=== PATIENT | female | born 1965 | race African-American/Black ===

== ENCOUNTER → 2024-11-26 15:12 | Outpatient (REF) | payer BC, SELFPAY ==
[2024-11-26 16:32] LABS: Urine Albumin Negative (Neg - Trace); Urine Bilirubin Negative (Negative); Urine Character Clear (Clear); Urine Color Yellow; Urine Glucose Negative (Negative); Urine Ketone Negative (Negative); Urine Leukocyte Negative (Negative); Urine Nitrite Negative (Negative); Urine Occult Blood 2+ (Negative); Urine Urobilinogen Negative (Neg - 1+)
[2024-11-26 16:56] LABS: Urine Mucus Few
[2024-11-26 16:57] LABS: Urine Bacteria Moderate (Negative); Urine White Cell 0-2 /HPF (0-5)
== END ==
LOC: REG 15:12
PROVIDERS: ATTENDING PHYSICIAN Family Medicine
DX: R35.0 Frequency of micturition (principal)
CPT/HCPCS: 81003; 81015; 87086

== ENCOUNTER 2024-12-20 02:06 | Emergency (ER) | payer BC, SELFPAY ==
[2024-12-20 02:08] VITALS: BP 184/100
[2024-12-20 02:21] VITALS: BMI 39.1
--- NOTE | 2024-12-20 02:41 | ED.GENMED ---
History of Present Illness
<Pebbles Vega PA-C - Last Filed: 12/20/24 06:14>
General
Chief Complaint: Facial Problem
Source: patient
Exam Limitations: none
Time Seen by Provider: 12/20/24 02:15
Nursing documentation reviewed up to this point in time: agreed with
History of Present Illness
History of Present Illness:
This is a 59-year-old female with a past medical history of GERD who presents emergency department today with concerns of right facial paresthesias. Patient reports that she woke up in the middle of the night and noticed that there was some
numbness and tingling to right side of her face. She feels a from her forehead down to her chin on that side. She denies any true loss of sensation. She denies any facial pain. She denies any burning sensation. She never anything like this
before. She is concerned that she may have be having a stroke. She also notes she feels a strange sensation in her right eyelid and feels like her right eye is not closing all the way. She feels tightness in her right forehead. She feels like her
right eyelid also feels somewhat droopy. She denies any confusion, difficulty speaking, difficulty swallowing, double vision, chest pain, shortness of breath, numbness or weakness in her upper or lower extremity, difficulty ambulating. She denies
any fevers or chills. She denies any exposures to ticks. She denies any history of shingles.
Review of Systems
<Pebbles Vega PA-C - Last Filed: 12/20/24 06:14>
Review of Systems
All Other Systems: ROS reviewed and negative except as documented in HPI and ROS
Phy Exam
<Pebbles Vega PA-C - Last Filed: 12/20/24 06:14>
Physical Exam
Physical Exam:
General: Patient is well appearing and in no acute distress; non-toxic
Skin: Warm and dry, no rashes or lesions
Head: Normocephalic, atraumatic
Eyes: Sclera non-icteric. EOMs intact. No nystagmus.
Cardiac: Regular rate and rhythm, no murmur
Pulm: Normal respiratory effort, no wheezes, rales, or rhonchi
Neuro: CN II-XII intact, no obvious facial droop, with eyebrows raised there is minimal muscle lag of the right forehead minimal loss of right nasolabial fold. 5/5 strength in bilateral upper and lower extremities. Normal finger to nose, heel to
stoll testing.
Psychiatric: Appropriate mood and affect.
Scores
<Pebbles Vega PA-C - Last Filed: 12/20/24 06:14>
NIH Stroke Score
Level of Consciousness: 0 - Alert
LOC Questions: 0-Answers both correctly
LOC Commands: 0-Performs both correctly
Best Horizontal Gaze: 0-Normal
Visual [place]: 0=Normal, no visual loss
Facial Palsy: 1=Minor paralysis
Motor - Right Arm: 0=No drift 10 seconds
Motor - Left Arm: 0=No drift 10 seconds
Motor - Right Le-No drift 5 seconds
Motor - Left Le-No drift 5 seconds
Limb Ataxia: 0-Absent
Sensation: 0-Normal
Best Language: 0-No aphasia
Dysarthria: 0-Normal
Extinction and Inattention: 0-No abnormality
NIH Total Score:: 1
Course
<Pebbles Vega PA-C - Last Filed: 12/20/24 06:14>
Orders/Labs/Results
Orders:
Orders
12/20/24 03:24
Complete Blood Count/With Diff Urgent
Comprehensive Metabolic Panel Urgent
Lyme Progressive Urgent
Abnormal Lab Results
12/20/24
03:24
Hct 35.6 L %
(37.0-47.0)
RDW 15.9 H %
(11.5-14.5)
MPV 10.9 H fL
(7.4-10.4)
Absolute Monos (auto) 0.8 H 10^3/uL
(0.1-0.6)
Monocytes % 9.5 H %
(1.7-9.3)
Chloride 109 H mmol/L
(98-107)
BUN 28 H mg/dl
(7-17)
Glucose 112 H mg/dl
(70-99)
12/20/24 03:24
12/20/24 03:24
Vital Signs
Initial and Last Documented VS:
Initial Vital Signs
Pulse Resp BP Pulse Ox
78 22 184/100 97
12/20/24 02:08 12/20/24 02:08 12/20/24 02:08 12/20/24 02:08
Last Documented Vital Signs
Temp Pulse Resp BP Pulse Ox
98.1 F 74 18 133/85 100
12/20/24 02:35 12/20/24 03:57 12/20/24 03:57 12/20/24 03:57 12/20/24 03:57
Yvonnelt;Edilma Pederson, DO - Last Filed: 12/20/24 03:40>
Orders/Labs/Results
Orders:
Orders
12/20/24 03:24
Complete Blood Count/With Diff Urgent
Comprehensive Metabolic Panel Urgent
Lyme Progressive Urgent
Abnormal Lab Results
12/20/24
03:24
Hct 35.6 L %
(37.0-47.0)
RDW 15.9 H %
(11.5-14.5)
MPV 10.9 H fL
(7.4-10.4)
Absolute Monos (auto) 0.8 H 10^3/uL
(0.1-0.6)
Monocytes % 9.5 H %
(1.7-9.3)
Chloride 109 H mmol/L
(98-107)
BUN 28 H mg/dl
(7-17)
Glucose 112 H mg/dl
(70-99)
12/20/24 03:24
12/20/24 03:24
Vital Signs
Initial and Last Documented VS:
Initial Vital Signs
Pulse Resp BP Pulse Ox
78 22 184/100 97
12/20/24 02:08 12/20/24 02:08 12/20/24 02:08 12/20/24 02:08
Last Documented Vital Signs
Temp Pulse Resp BP Pulse Ox
98.1 F 74 18 133/85 100
12/20/24 02:35 12/20/24 03:57 12/20/24 03:57 12/20/24 03:57 12/20/24 03:57
<Pebbles Vega PA-C - Last Filed: 12/20/24 06:14>
MDM/Problems Addressed
Differential Diagnosis Includes:
Differentials include Friend's palsy, Rekha Huynh syndrome, CVA,
MDM/Problems Addressed:
59 y/o female with pmh of GERD presents to the ER today with concerns of right facial paresthesias and feeling like she has trouble closing her right eye. On physical exam, there is very minimal lid lag right upper eye as well as very mild
asymmetry/muscle lag of right forehead musculature. Very minimal loss of nasolabial fold on the right. Tongue is midline. Gross sensation is intact. History and physical consistent with bells palsy. Lyme titer sent off. Did discuss use of
antivirals and prednisone however patient is very hesitant about this because of the side effects. Patient is concerned about taking higher dose steroids, will give patient 5-day course of 40 mg of prednisone and stressed follow-up with her primary
care provider to monitor the progression of her symptoms. Patient stressed understanding. Patient stable for discharge.
<Pebbles Vega PA-C - Last Filed: 12/20/24 06:14>
*Critical Care Note
Total Time (30-74mins, 75-104mins- exclusive of procedures): Not Applicable
ED Attending Note
<Pebbles Vega PA-C - Last Filed: 12/20/24 06:14>
-
Portions of this chart may have been created with voice recognition software.� Occasional wrong word or��sound alike� substitutions may have occurred due to the inherent limitations of voice recognition software.
<Edilma Pederson DO - Last Filed: 12/20/24 03:40>
ED Attending Note
Patient seen and examined by attending physician: Yes
I performed a history and physical exam of patient and discussed management with resident, I reviewed resident's note and agree with documented findings and plan of care.: Yes
ED Attending Note:
This is a 59-year-old woman with history of GERD, borderline hypertension who presents with right facial numbness primarily right forehead, right eyelid with a sense of mild weakness of right forehead muscles and right upper eyelid. She admits to
feeling that she may be 'coming down with something' earlier today otherwise feeling well. She denies headache. No fever no chills. No vision difficulty.
No history of similar episodes in the past.
She takes omeprazole every other day as well as supplements.
59-year-old woman appears her stated age, bright and alert, pleasant, appears in no acute distress.
HEENT: Pupils are equally reactive to light, extraocular muscles intact. Visual acuity intact. There is very minimal lid lag right upper eye as well as very mild asymmetry/muscle lag of right forehead musculature. Very minimal loss of nasolabial
fold on the right. Tongue is midline. Gross sensation is intact. No swelling. No rash.
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
We discussed usual course and treatment for Friend's palsy.
At this point no indication for imaging. Will check Lyme titer.
Recommend 1 week course of prednisone as well as Valtrex. Patient is hesitant to take any medication and as symptoms are mild could consider holding off on antiviral but recommend at least a short course of oral steroids with plan for prompt
follow-up with PCP for recheck.
Initial blood pressure moderately hypertensive--pt has hx of HTN--but reports improved with dietary changes. Will recheck BP. Will check routine labs.
Discharge Plan
Departure
Patient Disposition: Home (Routine Discharge)
Date of Disposition: 12/20/24
Time of Disposition: 04:42
Patient with high blood pressure during this ER visit?: Yes
Condition: Good
Discharge Problem:
Friend's palsy
Instructions: Friend's Palsy (DC), BLOOD PRESSURE
Prescriptions:
New
prednisone 20 mg tablet
40 mg PO DAILY 5 Days Qty: 10 0RF
No Action
omeprazole 20 mg Tablet,Delayed Release (Dr/Ec)
20 mg PO QDAY PRN (Reason: reflux)
Referrals:
Francois Saldaña MD [Family Provider] -
Activity Restrictions/Additional Instructions:
You can use artificial tears or eye ointment over the counter to help keep the right eye moisturized.
Prednisone has been sent to your pharmacy. Please take 40 mg once daily for 5 days.
Please call your primary care provider for follow up.
PLEASE RETURN TO THE ER SHOULD YOU DEVELOP CHEST PAIN, SHORTNESS OF BREATH, WEAKNESS ON ONE SIDE OF THE BODY, CONFUSION, DIFFICULTY SPEAKING, DOUBLE VISION, SLURRED SPEECH, VISUAL LOSS, OR ANY OTHER SIGNS OR SYMPTOMS WORRISOME TO YOU.
Interventions
Interventions:
*Risk Screen - Suicide Last Done: 12/20/24 02:08
*General Assessment Last Done: 12/20/24 02:22
*Neglect/Abuse Screening Last Done: 12/20/24 02:08
*ED- Fall Risk Assessment Last Done: 12/20/24 02:22
*ED COVID-19 Vaccine History Last Done: 12/20/24 02:22
*Nursing Disposition Last Done: 12/20/24 04:52
ED- Neurological Assessment Last Done: 12/20/24 02:32
ED-Skin Assessment Last Done: 12/20/24 02:32
Discharge Date and Time
Discharge Date/Time: 12/20/24 04:52
Print Language: INDONESIAN
[2024-12-20 03:46] LABS: % Basophils 0.5 % (0-2); % Eosinophils 1.7 % (0-6); % Immature Granulocytes 0.2 % (0-0.5); % Lymphocytes 38.4 % (20.5-51.1); % Monocytes 9.5 % (1.7-9.3); % Neutrophils 49.7 % (42.2-75.2); Absolute Eosinophils 0.2 10^3/uL (0-0.7); Absolute Lymphocytes 3.4 10^3/uL (1.2-3.4); Absolute Monocytes 0.8 10^3/uL (0.1-0.6); Absolute Neutrophils 4.4 10^3/uL (1.4-6.5); Hematocrit 35.6 % (37.0-47.0); Mean Corp Hgb Conc. 33.7 g/dL (33.0-37.0); Mean Corpuscular Hgb 28.2 pg (27.0-31.0); Mean Corpuscular Volume 83.6 fL (81.0-99.0); Mean Platelet Volume 10.9 fL (7.4-10.4); Nucleated Red Blood Cells % 0 %; Platelet Count 256 10^3/uL (130-400); Red Blood Cell Count 4.26 10^6/uL (4.20-5.40); Red Cell Dist. Width 15.9 % (11.5-14.5); White Blood Cell Count 8.9 10^3/uL (4.8-10.8)
[2024-12-20 03:57] VITALS: BP 133/85
[2024-12-20 04:08] LABS: ALT (SGPT) 21 U/L (0-35); AST (SGOT) 27 U/L (14-36); Alkaline Phosphatase 97 U/L (38-126); Blood Urea Nitrogen 28 mg/dl (7-17); Calcium 9.2 mg/dl (8.4-10.2); Carbon Dioxide 27 mmol/L (22-30); Chloride 109 mmol/L (98-107); Estimated Creatinine Clearance 69 ml/min; Glucose 112 mg/dl (70-99); Potassium 3.9 mmol/L (3.5-5.1); Sodium 138 mmol/L (135-145); Total Bilirubin 0.5 mg/dl (0.2-1.3); Total Protein 7.1 g/dl (6.3-8.2); eGFR > 60.00
[2024-12-20 11:15] LABS: Lyme Antibody Screen, EIA Negative (Negative)
== END 2024-12-20 04:52 | disposition home or self-care (01) ==
LOC: EMR 02:06
PROVIDERS: Physician Assistant; EMERGENCY PHYSICIAN Emergency Medicine; FAMILY PHYSICIAN Internal Medicine
DX: G51.0 Bell's palsy (principal); K21.9 Gastro-esophageal reflux disease without esophagitis; I10 Essential (primary) hypertension; Z88.1 Allergy status to other antibiotic agents; Z88.7 Allergy status to serum and vaccine
CPT/HCPCS: 99283; 80053; 85025; 86618